=== PATIENT | male | born 1965 | race Caucasian/White ===

== ENCOUNTER → 2017-02-23 19:58 | Outpatient (CLI) | payer OTHER ==
[2017-02-23 20:22] LABS: AMYLASE - SERUM 44 U/L (25-115); LIPASE 110 U/L (73-393)
== END | disposition home or self-care (01) ==
LOC: D.LABREF 19:58
PROVIDERS: Family Medicine
DX: R10.9 Unspecified abdominal pain (principal); N39.0 Urinary tract infection, site not specified

== ENCOUNTER → 2017-03-23 16:36 | Outpatient (CLI) | payer OTHER | END | disposition home or self-care (01) | LOC: D.US 16:30 | DX: N50.819 Testicular pain, unspecified (principal) ==

== ENCOUNTER → 2017-04-22 08:15 | Outpatient (CLI) | payer OTHER | END | disposition home or self-care (01) | LOC: D.US 08:15 | DX: R78.4 Finding of other drugs of addictive potential in blood (principal) ==

== ENCOUNTER → 2018-12-08 10:31 | Outpatient (CLI) | payer OTHER | END | disposition home or self-care (01) | LOC: D.US 10:31 → D.NM 13:00 | PROVIDERS: ATTEND Internal Medicine Gastroenterology | DX: R10.13 Epigastric pain (principal); K21.9 Gastro-esophageal reflux disease without esophagitis; R11.0 Nausea; K50.90 Crohn's disease, unspecified, without complications ==

== ENCOUNTER 2019-03-05 05:46 | Day surgery (SDC) | payer OTHER ==
[~2019-03-05] VITALS: Ht 180.3 cm; Wt 116.8 kg
[2019-03-05 06:14] VITALS: BP 125/80; Ht 180.3 cm; Wt 116.8 kg
[2019-03-05] MEDS ORDERED: SYNTHROID137 MCG PO (06:39)
[2019-03-05] MEDS ORDERED: AZULFIDINE500 MG PO (06:40)
[2019-03-05] MEDS ORDERED: FOLIC ACID1 MG PO (06:40)
[2019-03-05] MEDS ORDERED: SYNTHROID125 MCG (06:40)
[2019-03-05] MEDS ORDERED: HYDROCODON-ACE1 EAC7 PO (08:36)
--- NOTE | 2019-03-05 09:27 | NUR ---
0925 ICE CAPS PROVIDED FOR PT.
--- NOTE | 2019-03-05 09:38 | NUR ---
0935 FL DIET SERVED.
== END 2019-03-05 10:25 | disposition home or self-care (01) ==
LOC: D.OPS 05:46
PROVIDERS: ATTEND Surgery
DX: K82.8 Other specified diseases of gallbladder (principal)

== ENCOUNTER → 2019-06-20 07:53 | Outpatient (CLI) | payer OTHER ==
[2019-03-05 06:14] VITALS: BMI 35.9
[~2019-06-20 07:53] MED LIST: AZULFIDINE500 MG PO; FOLIC ACID1 MG PO; HYDROCODON-ACE1 EAC7 PO; SYNTHROID125 MCG; SYNTHROID137 MCG PO
[2019-06-20 09:20] LABS: ALBUMIN 3.6 g/dL (3.4-5.0); BILIRUBIN - DIRECT 0.15 mg/dL (0.00-0.30); BILIRUBIN - INDIRECT 0.79 mg/dL (0.00-1.00); BILIRUBIN - TOTAL 0.94 mg/dL (0.2-1.3); PROTEIN - SERUM 7.2 g/dL (6.4-8.2)
== END | disposition home or self-care (01) ==
LOC: D.US 11-24 13:00
PROVIDERS: ATTEND Internal Medicine Gastroenterology
DX: K76.0 Fatty (change of) liver, not elsewhere classified (principal)

== ENCOUNTER → 2019-12-07 08:46 | Outpatient (CLI) | payer OTHER ==
[2019-03-05 06:14] VITALS: BMI 35.9
[2019-12-07 09:29] LABS: ALBUMIN 3.8 g/dL (3.4-5.0); BILIRUBIN - DIRECT 0.15 mg/dL (0.00-0.30); BILIRUBIN - INDIRECT 0.71 mg/dL (0.00-1.00); BILIRUBIN - TOTAL 0.86 mg/dL (0.2-1.3); PROTEIN - SERUM 7.5 g/dL (6.4-8.2)
== END | disposition home or self-care (01) ==
LOC: D.US 08:46
PROVIDERS: ATTEND Internal Medicine Gastroenterology
DX: K76.0 Fatty (change of) liver, not elsewhere classified (principal)

== ENCOUNTER → 2020-12-05 07:11 | Outpatient (CLI) | payer OTHER ==
[2019-03-05 06:14] VITALS: BMI 35.9
[2020-12-05 08:06] LABS: ALBUMIN 3.6 g/dL (3.4-5.0); BILIRUBIN - DIRECT 0.1 mg/dL (0.00-0.30); BILIRUBIN - INDIRECT 0.4 mg/dL (0.00-1.00); BILIRUBIN - TOTAL 0.5 mg/dL (0.2-1.3)
== END | disposition home or self-care (01) ==
LOC: D.US 07:11
PROVIDERS: ATTEND Internal Medicine Gastroenterology
DX: K76.0 Fatty (change of) liver, not elsewhere classified (principal)